=== PATIENT | male | born 1975 | race Caucasian/White ===

== ENCOUNTER 2023-03-26 08:59 | Observation (INO) | payer BC ==
--- NOTE | 2023-03-26 09:17 | ED ---
Chest Pain HPI - General Stated Complaint: Back pain Source: patient Mode of arrival: ambulatory Limitations: no limitations - History of Present Illness Initial Comments: The patient is a 47-year-old gentleman who was recently diagnosed with type 2 diabetes and hypercholesterol who presents with back and chest pain. Patient was told to come to the emergency room by poultry hatchery manager Dr. Hall. Patient has been having intermittent chest pain and back pain over the last 3 months. This started at the same time he was diagnosed with new onset diabetes and hyper lipidemia. The patient had an outpatient stress test neck which showed some changes. He is requiring a cardiac cath however has not been scheduled. The patient spoke with the poultry hatchery manager yesterday who instructed him to come to the emergency room this morning. Of note patient states he does have a family history of cardiac disease including his father who had a bypass and suspected aneurysm versus dissection repair In his mid 50s. The patient vapes. he dneies drug use. denies shortness of breath. the pain usually starts in the back and radiates through to the chest. He denies any pleuritic pain. The pain is worse with activity and ambulation. - Related Data Allergies Allergy/AdvReac Type Severity Reaction Status Date / Time tetanus immune globulin Allergy Unknown Verified 03/26/23 09:05 Childhood Review of Systems ROS Statement: Those systems with pertinent positive or pertinent negative responses have been documented in the HPI. ROS Other: All systems not noted in ROS Statement are negative. EKG Findings - EKG Comments: EKG Findings:: EKG shows sinus rhythm at a rate in 99 bpm, complete right bundle-branch block, no acute ST segment elevation Past Medical History Past Medical History: Diabetes Mellitus, Hypertension History of Any Multi-Drug Resistant Organisms: None Reported Past Surgical History: Back Surgery Additional Past Surgical History / Comment(s): Back surgery. Past Psychological History: No Psychological Hx Reported Smoking Status: Vaper Past Alcohol Use History: None Reported Past Drug Use History: None Reported General Exam Limitations: no limitations General appearance: alert, in no apparent distress Head exam: Present: atraumatic Eye exam: Present: normal appearance ENT exam: Present: normal exam Neck exam: Present: normal inspection Respiratory exam: Present: normal lung sounds bilaterally Cardiovascular Exam: Present: regular rate, tachycardia GI/Abdominal exam: Present: soft Extremities exam: Present: full ROM Back exam: Present: full ROM Neurological exam: Present: alert, oriented X3, CN II-XII intact Psychiatric exam: Present: normal affect, normal mood Skin exam: Present: warm, dry Course Vital Signs 03/26/23 03/26/23 03/26/23 09:00 09:11 09:16 Temperature 98.4 F Pulse Rate 116 H 97 Pulse Rate [ 116 H Pulse Oximetery ] Respiratory 18 18 Rate Blood Pressure 152/97 145/86 O2 Sat by Pulse 98 99 Oximetry - Reevaluation(s) Reevaluation #1: 03/26/23 11:42 Patient's well appearing emergency room. On reevaluation his heart rate had significantly improved. I discussed lab and imaging results with patient. CT angiogram was negative for dissection or aneurysm. His EKG shows no acute ST segment elevation in his troponin is negative. I discussed admission plan for the suspected cardiac cath with the patient. He understands reasons to this plan. Chest Pain MDM - MDM Was pt. sent in by a medical professional or institution (, PA, INSTRUMENTAL MUSICIAN, urgent care, hospital, or fdc...) When possible be specific @ -Sent in by poultry hatchery manager Dr. Hall Did you speak to anyone other than the patient for history (EMS, parent, family, police, friend...)? What history was obtained from this source @ -[No] Did you review nursing and triage notes (agree or disagree)? Why? @ -[I reviewed and agree with nursing and triage notes] Were old charts reviewed (outside hosp., previous admission, EMS record, old EKG, old radiological studies, urgent care reports/EKG's, fdc records)? Report findings @ -[No old charts were reviewed] Differential Diagnosis (chest pain, altered mental status, abdominal pain women, abdominal pain men, vaginal bleeding, weakness, fever, dyspnea, syncope, headache, dizziness, GI bleed, back pain, seizure, CVA, palpatations, mental health, musculoskeletal)? @ -Chest pain, angina, MT, aortic dissection, aortic aneurysm EKG interpreted by me (3pts min.). @ -Shows sinus rhythm at a rate of 99 bpm, incomplete right bundle-branch block, no acute ST segment elevation X-rays interpreted by me (1pt min.). @ -[None done] CT interpreted by me (1pt min.). @ -CT angiogram of the abdomen and chest was negative for any aortic dissection or aneurysm however radiology report is pending for confirmation of specific acute changes U/S interpreted by me (1pt. min.). @ -[None done] What testing was considered but not performed or refused? (CT, X-rays, U/S, labs)? Why? @ -[None] What meds were considered but not given or refused? Why? @ -[None] Did you discuss the management of the patient with other professionals (professionals i.e. , PA, INSTRUMENTAL MUSICIAN, lab, RT, psych nurse, social services manager, punch press operator helper, teacher, textile technical officer, lead case manager)? Give summary @ -Symptoms workup and disposition with attending ED physician Dr. Lezama today. The CT angios order as well. Was smoking cessation discussed for >3mins.? @ -[No] Was critical care preformed (if so, how long)? @ -[No] Were there social determinants of health that impacted care today? How? (Homel essness, low income, unemployed, alcoholism, drug addiction, transportation, low edu. Level, literacy, decrease access to med. care, residential, rehab)? @ -[No] Was there de-escalation of care discussed even if they declined (Discuss DNR or withdrawal of care, Hospice)? DNR status @ -[No] What co-morbidities impacted this encounter? (DM, HTN, Smoking, COPD, CAD, Cancer, CVA, ARF, Chemo, Hep., AIDS, mental health diagnosis, sleep apnea, morbid obesity)? @ -New diagnosis of DM and hyperlipidemia Was patient admitted / discharged? Hospital course, mention meds given and route, prescriptions, significant lab abnormalities, going to OR and other pertinent info. @ -Patient will be admitted to the hospital for cardiac evaluation and suspected cardiac cath Undiagnosed new problem with uncertain prognosis? @ -[No] Drug Therapy requiring intensive monitoring for toxicity (Heparin, Nitro, Insulin, Cardizem)? @ -[No] Were any procedures done? @ -[No] Diagnosis/symptom? @ -Chest pain Acute, or Chronic, or Acute on Chronic? @ -[default] Uncomplicated (without systemic symptoms) or Complicated (systemic symptoms)? @ -Uncomplicated Side effects of treatment? @ -[No] Exacerbation, Progression, or Severe Exacerbation? @ -[No] Poses a threat to life or bodily function? How? (Chest pain, USA, MT, pneumonia, PE, COPD, DKA, ARF, appy, cholecystitis, CVA, Diverticulitis, Homicidal, Suicidal, threat to staff... and all critical care pts) @ -Yes patient is at risk of having an MT, permanent disability or . Disposition Clinical Impression: Chest pain Disposition: ADMITTED IP TO THIS [facility] Condition: Good Is patient prescribed a controlled substance at d/c from ED?: No Referrals: Maye Lombardo DO [Primary Care Provider] - 1-2 days Decision Time: 11:45
[2023-03-26 09:33] LABS: Basophils % (A) 1 %; Eosinophils # (A) 0.2 k/uL (0-0.7); Eosinophils % (A) 2 %; HCT 47.2 % (39.0-53.0); HGB 16.4 gm/dL (13.0-17.5); Lymphocytes # (A) 2.2 k/uL (1.0-4.8); Lymphocytes % (A) 24 %; MCH 30.1 pg (25.0-35.0); MCHC 34.7 g/dL (31.0-37.0); MCV 86.6 fL (80.0-100.0); Mean Platelet Volume 7.9; Monocytes # (A) 0.4 k/uL (0-1.0); Monocytes % (A) 5 %; Neutrophils # (A) 6.1 k/uL (1.3-7.7); Neutrophils % (A) 66 %; Platelet Count 256 k/uL (150-450); RBC 5.45 m/uL (4.30-5.90); RDW 13.3 % (11.5-15.5); WBC 9.3 k/uL (3.8-10.6)
[2023-03-26 09:54] LABS: INR 0.9 (<1.2); Partial Thromboplastin Time 23.4 sec (22.0-30.0); Prothrombin Time 10.4 sec (10.0-12.5)
[2023-03-26 09:59] LABS: ALT 23 U/L (4-49); AST 20 U/L (17-59); African American GFR (CKD) >90 (>60 ml/min/1.73 sqM); Albumin 4.4 g/dL (3.5-5.0); Alkaline Phosphatase 67 U/L (38-126); Anion Gap 13 mmol/L; Blood Urea Nitrogen 16 mg/dL (9-20); Calcium 9.4 mg/dL (8.4-10.2); Carbon Dioxide 20 mmol/L (22-30); Chloride 101 mmol/L (98-107); Glucose 316 mg/dL (74-99); Non-African American GFR(CKD) >90 (>60 ml/min/1.73 sqM); Potassium 4.8 mmol/L (3.5-5.1); Sodium 134 mmol/L (137-145); Total Bilirubin 0.7 mg/dL (0.2-1.3); Total Protein 6.9 g/dL (6.3-8.2)
[2023-03-26] MEDS ORDERED: ASPIRIN 81 MG PO STA (10:26)
[2023-03-26] MEDS ORDERED: SODIUM CHLORIDE 0.9% 500 ML 500 ML IV STA (10:26)
[2023-03-26] MEDS ORDERED: INSULIN REGULAR 100 UNIT/ML VIAL (IV) IV ONE (10:26)
[2023-03-26] MEDS ORDERED: NITROGLYCERIN SL TABS 0.4 MG TAB SUBLINGUAL PRN ×2 (10:27→11:33)
--- NOTE | 2023-03-26 10:45 | CT ---
INDICATION: Patient age:Male; 47 years old; Reason for study: back pain radiating through chest, tachycardic; PHH. COMPARISON: None. TECHNIQUE: Multiple axial images of the chest abdomen were obtained prior to and following intravenou s administration of 100 cc Isovue-370. Coronal and sagittal reformatted images were obtained. Three-d imensional images are obtained at independent workstation for further evaluation of the arterial stru ctures. 3-D reconstructed images and maximum intensity projection images were obtained of the aorta.O ne or more CT dose reduction strategies were utilized during this examination. Total DLP administered 2711.8 mGycm FINDINGS: VASCULAR FINDINGS: ARTERIAL VASCULATURE: The unenhanced images do not demonstrate any evidence to suggest intramural hematoma. After the admin istration of contrast, the aorta demonstrate a normal course and caliber. The pulmonary outflow tract appears within normal limits for size. There is no evidence of aortic dissection, aneurysm or acute aortic injury. Great arch vessels patent and normal in course and caliber. The celiac axis, SMA, bi lateral single renal arteries, and MIRELA are widely patent. PULMONARY ARTERIAL VASCULATURE: Normal caliber. CHEST: LUNGS: No acute area of infiltrative or consolidative change. LARGE AIRWAYS: Central airways are patent. PLEURAL: No pleural effusion or thickening. No pneumothorax. HEART AND PERICARDIUM: Heart is normal in size. There is no pericardial effusion. Mild coronary arter y calcifications present. MEDIASTINUM AND SHIRA: No mediastinal or hilar lymphadenopathy or soft tissue mass. CHEST WALL AND LOWER NECK: Bilateral gynecomastia. ABDOMEN: Liver: Unremarkable. Gallbladder and Bile ducts: Unremarkable. Pancreas: Unremarkable. Spleen: Unremarkable. Adrenal glands: Unremarkable. Kidneys and Ureters: No hydronephrosis or renal calculus. The kidneys enhance symmetrically. Stomach and Bowel: Hyperdense material within the stomach on the noncontrast phase. No evidence of carter wel obstruction or bowel wall thickening. Peritoneum: No evidence of pneumoperitoneum, free fluid, or adenopathy. Musculoskeletal: The osseous structures appear intact. Remote posterior left-sided lower rib fracture s. IMPRESSION: No evidence of aortic dissection or acute process.
[2023-03-26] MEDS ORDERED: NALOXONE 0.4 MG/ML 1 ML VIAL IV PRN (11:33)
[2023-03-26] MEDS ORDERED: ALPRAZolam 0.25 MG TAB PO PRN (13:33)
[2023-03-26] MEDS ORDERED: ALPRAZolam 0.5 MG TAB PO PRN (13:33)
[2023-03-26] MEDS ORDERED: ATORVASTATIN 80 MG TAB PO STA (13:33)
[2023-03-26] MEDS ORDERED: SODIUM CHLORIDE 0.9% 1,000 ML in EMPTY BAG 1 BAG IV SCH (13:45)
[2023-03-26] MEDS ORDERED: VERAPAMIL 2.5 MG/ML 2 ML AMP ONE (14:12)
[2023-03-26] MEDS ORDERED: fentaNYL (PF) 50 MCG/ML 2 ML AMP ONE (14:12)
[2023-03-26] MEDS ORDERED: SODIUM CHLORIDE 0.9% 1,000 ML IV ONE (14:18)
--- NOTE | 2023-03-26 14:26 | P.CRDCN ---
History of Present Illness History of present illness: HISTORY OF PRESENTING ILLNESS Patient is a pleasant 47-year-old male with history of recently diagnosed hypertension, hyperlipidemia, diabetes mellitus type 2. Patient has been having increasing episodes of chest pain with exertion as well as shortness of breath. He did have a stress test which is abnormal and therefore recommended for heart catheterization however has been having issues with insurance denying an outpatient test. Therefore given unstable angina-type symptoms recommended to go to the emergency department. He was started on metoprolol however no significant change in his symptoms. Family history of CAD. He is vaping. Troponin noted to be normal. CTA was performed which showed no PE, no dissection. REVIEW OF SYSTEMS At the time of my exam: CONSTITUTIONAL: Denies fever or chills. CARDIOVASCULAR: +chest pain, +shortness of breath, no orthopnea, PND or palp itations. RESPIRATORY: Denies cough. GASTROINTESTINAL: Denies abdominal pain, diarrhea, constipation, nausea or vomiting. MUSCULOSKELETAL: Denies myalgias. NEUROLOGIC: Denies numbness, tingling or weakness. ENDOCRINE: Denies fatigue, weight change, polydipsia or polyurina. GENITOURINARY: Denies burning, hematuria or urgency with micturation. HEMATOLOGIC: Denies history of anemia or bleeding. PHYSICAL EXAMINATION Vital signs reviewed. CONSTITUTIONAL: No apparent distress. HEENT: Head is normocephalic. Pupils are equal, round. Sclerae anicteric. Mucous membranes of the mouth are moist. No JVD. No carotid bruit. CHEST EXAMINATION: Lungs are clear to auscultation. No chest wall tenderness is noted on palpation or with deep breathing. HEART EXAMINATION: Regular rate and rhythm. S1, S2 heard. No murmurs, gallops or rub. ABDOMEN: Soft, nontender. Positive bowel sounds. EXTREMITIES: 2+ peripheral pulses, no lower extremity edema and no calf tenderness. NEUROLOGIC EXAMINATION: Patient is awake, alert and oriented x3. ASSESSMENT 1. Chest pain with exertion over last few months consistent with unstable angina, worsening 2. Hypertension 3. Hyperlipidemia 4. Diabetes mellitus type 2 5. Family history of CAD PLAN Patient with abnormal stress test and persistent symptoms with no other etiology. Symptoms concerning for unstable angina. Check left heart catheterization. Further recommendations to follow. Past Medical History Past Medical History: Diabetes Mellitus, Hypertension History of Any Multi-Drug Resistant Organisms: None Reported Past Surgical History: Back Surgery Additional Past Surgical History / Comment(s): Back surgery. Past Psychological History: No Psychological Hx Reported Smoking Status: Vaper Past Alcohol Use History: None Reported Past Drug Use History: None Reported Medications and Allergies Home Medications Medication Instructions Recorded Confirmed Type Aspirin EC [Ecotrin Low Dose] 81 mg PO DAILY 03/26/23 03/26/23 History Metoprolol Succinate [Metoprolol 25 mg PO DAILY 03/26/23 03/26/23 History Succinate ER] Nitroglycerin Sl Tabs [Nitrostat] 0.4 mg SUBLINGUAL Q5M PRN 03/26/23 03/26/23 History Tirzepatide [Mounjaro] 2.5 mg SQ TH 03/26/23 03/26/23 History amLODIPine [Norvasc] 2.5 mg PO DAILY 03/26/23 03/26/23 History lisinopriL [Zestril] 10 mg PO DAILY 03/26/23 03/26/23 History Allergies Allergy/AdvReac Type Severity Reaction Status Date / Time tetanus immune globulin Allergy Unknown Verified 03/26/23 12:19 Childhood Physical Exam Vitals: Vital Signs Temp Pulse Pulse Resp BP Pulse Ox 03/26/23 09:16 97 18 145/86 99 03/26/23 09:11 116 H 03/26/23 09:00 98.4 F 116 H 18 152/97 98 Intake and Output 03/25/23 03/26/23 03/26/23 22:59 06:59 14:59 Other: Weight 138.346 kg Results 03/26/23 09:20 03/26/23 09:20 Cardiac Enzymes 03/26/23 03/26/23 Range/Units 09:20 09:20 AST 20 (17-59) U/L Troponin I <0.012 (0.000-0.034) ng/mL Coagulation 03/26/23 Range/Units 09:20 PT 10.4 (10.0-12.5) sec APTT 23.4 (22.0-30.0) sec CBC 03/26/23 Range/Units 09:20 WBC 9.3 (3.8-10.6) k/uL RBC 5.45 (4.30-5.90) m/uL Hgb 16.4 (13.0-17.5) gm/dL Hct 47.2 (39.0-53.0) % Plt Count 256 (150-450) k/uL Comprehensive Metabolic Panel 03/26/23 Range/Units 09:20 Sodium 134 L (137-145) mmol/L Potassium 4.8 (3.5-5.1) mmol/L Chloride 101 (98-107) mmol/L Carbon Dioxide 20 L (22-30) mmol/L BUN 16 (9-20) mg/dL Creatinine 0.78 (0.66-1.25) mg/dL Glucose 316 H (74-99) mg/dL Calcium 9.4 (8.4-10.2) mg/dL AST 20 (17-59) U/L ALT 23 (4-49) U/L Alkaline Phosphatase 67 (38-126) U/L Total Protein 6.9 (6.3-8.2) g/dL Albumin 4.4 (3.5-5.0) g/dL Current Medications Generic Name Dose Route Start Last Admin Trade Name Freq PRN Reason Stop Dose Admin Alprazolam 0.25 mg 03/26/23 13:33 Alprazolam 0.25 Mg Tab PO Q6HR PRN Mild Anxiety Alprazolam 0.5 mg 03/26/23 13:33 Alprazolam 0.5 Mg Tab PO Q6HR PRN Moderate Anxiety Aspirin 325 mg 03/27/23 09:00 Aspirin 325 Mg Tab PO DAILY KATY Heparin Sodium (Porcine) 10, 1,001 mls @ 999 mls/hr 03/27/23 07:00 000 unit/ Sodium Chloride IRRIGATION 03/27/23 23:00 ONCE PRN INTRA-OP Heparin Sodium (Porcine) 2,500 250.5 mls @ 250 mls/hr 03/27/23 07:00 unit/ Sodium Chloride IRRIGATION 03/27/23 23:00 ONCE PRN INTRA-OP Sodium Chloride 1,000 ml/ IV 1,000 mls @ 138.346 mls/hr 03/26/23 13:45 Solution IV .Q7H14M KATY 1 ML/KG/HR Naloxone HCl 0.2 mg 03/26/23 11:33 Naloxone 0.4 Mg/Ml 1 Ml Vial IV Q2M PRN Opioid Reversal Nitroglycerin 0.4 mg 03/26/23 10:27 Nitroglycerin Sl Tabs 0.4 Mg Tab SUBLINGUAL Q5M PRN Chest Pain Intake and Output 03/25/23 03/26/23 03/26/23 22:59 06:59 14:59 Other: Weight 138.346 kg Patient Weight 03/27/23 06:59 Weight 138.346 kg 03/26/23 09:20 03/26/23 09:20
[2023-03-26] MEDS ORDERED: MIDAZOLAM 2 MG/2 ML VIAL IVP ONE (14:28)
[2023-03-26] MEDS ORDERED: LIDOCAINE 1% INJ 10MG/ML (5 ML VIAL-PF) SQ ONE (14:29)
[2023-03-26] MEDS ORDERED: VERAPAMIL SYRINGE (5 MG/10 ML) INTRAARTER ONE (14:31)
[2023-03-26] MEDS ORDERED: HEPARIN SODIUM 1,000 UN/ML (10ML VL) IV ONE (14:32)
[2023-03-26] MEDS ORDERED: fentaNYL (PF) 50 MCG/ML 2 ML AMP IVP ONE (14:33)
[2023-03-26] MEDS ORDERED: IOPAMIDOL-370 100ML BTL INJ ONE (14:41)
--- NOTE | 2023-03-26 14:45 | P.CARDCATH ---
Description of Procedure: PROCEDURES PERFORMED: Left heart catheterization, bilateral coronary angiography, ultrasound guided arterial access INDICATION: Chest pain concerning for unstable angina CONSENT:I have discussed the risks, benefits and alternative therapies for the above-mentioned procedure and for both sedation/analgesia as well as necessary blood product administration, if indicated, as they pertain to this patient. The patient has indicated understanding and acceptance of the risks and procedures discussed. PROCEDURE: After the risks, benefits and alternatives of the above mentioned procedure explained in detail with the patient, informed consent was obtained. Patient was taken to the catheterization lab and prepped and draped in usual fashion. Ultrasound guidance was used to assess for arterial access. 1% lidocaine was used to anesthetize the right radial artery. A 6-Czech sheath was placed in the right radial artery using modified Seldinger technique and ultrasound guidance. Left coronary angiography was performed with a 5-Czech JL 3.5 catheter and right coronary angiography was performed with a 5-Czech JR5 catheter in various views. A 5-Czech FR5 catheter was inserted into the left ventricle and pressure measurements were obtained. The right radial sheath was removed and a TR band was placed with hemostasis achieved. The patient tolerated the procedure well. Patient was transported back to the post catheterization holding area in stable condition. Conscious Sedation: Patient was monitored under the direct supervision of myself for conscious sedation using Versed and fentanyl for a total duration of 12 minutes HEMODYNAMICS: Aorta: 123/74 LV: 132/7, LVEDP 13-14 SELECTIVE CORONARY ARTERIOGRAPHY: LEFT MAIN: The left main is a large caliber vessel which bifurcates into the LAD and circumflex. There is no significant stenosis. LEFT ANTERIOR DESCENDING CORONARY ARTERY: LAD is a large caliber vessel which wraps around to the apex. There are mild luminal irregularities. The LAD becomes somewhat small caliber after a small to moderate caliber diagonal 2 branch and there is a more focal 40-50% stenosis. LEFT CIRCUMFLEX CORONARY ARTERY: Left circumflex is a moderate caliber vessel without significant stenosis. RIGHT CORONARY ARTERY: The right coronary artery is a large caliber vessel which gives off a PDA and PLV branch and is the dominant vessel. There are mild luminal irregularities up to 10%. FINAL IMPRESSION: 1. Relatively normal coronary arteries other than a distal LAD 40-50% stenosis just after diagonal 2 branch, appears more moderate 2. Normal left sided filling pressures PLAN: 1. Aggressive risk factor modification per most recent ACC/AHA guidelines. 2. Follow-up in the office in 1-2 weeks. 3. If continuing to have angina-type symptoms may consider iFR of the distal LAD however appears moderate 40% stenosis.
[2023-03-26 16:06] VITALS: TEMP 97.9
[2023-03-26 16:31] LABS: Glucose,Whole Blood 215 mg/dL (70-110)
[2023-03-26 16:49] LABS: Basophils % (A) 0 %; Eosinophils # (A) 0.1 k/uL (0-0.7); Eosinophils % (A) 1 %; Lymphocytes # (A) 1.3 k/uL (1.0-4.8); Lymphocytes % (A) 15 %; MCH 30.6 pg (25.0-35.0); MCHC 34.9 g/dL (31.0-37.0); MCV 87.7 fL (80.0-100.0); Mean Platelet Volume 7.9; Monocytes # (A) 0.4 k/uL (0-1.0); Monocytes % (A) 5 %; Neutrophils # (A) 6.4 k/uL (1.3-7.7); Neutrophils % (A) 77 %; Platelet Count 252 k/uL (150-450); RBC 5.24 m/uL (4.30-5.90); RDW 13.5 % (11.5-15.5); WBC 8.3 k/uL (3.8-10.6)
[2023-03-26 17:22] VITALS: BP 115/67; PULSE 78; RESP 18
[2023-03-26 17:29] LABS: Potassium 4.5 mmol/L (3.5-5.1)
[2023-03-26 17:31] LABS: African American GFR (CKD) >90 (>60 ml/min/1.73 sqM); Anion Gap 12 mmol/L; Blood Urea Nitrogen 14 mg/dL (9-20); Calcium 9.4 mg/dL (8.4-10.2); Carbon Dioxide 24 mmol/L (22-30); Chloride 102 mmol/L (98-107); Glucose 180 mg/dL (74-99); Non-African American GFR(CKD) >90 (>60 ml/min/1.73 sqM); Sodium 138 mmol/L (137-145)
[2023-03-27] MEDS ORDERED: HEPARIN SODIUM,PORCINE (1 ML) 2,500 UNIT in SODIUM CHLORIDE 0.9% 250 ML IRRIGATION PRN (07:00)
[2023-03-27] MEDS ORDERED: HEPARIN SODIUM,PORCINE 10,000 UNIT in SODIUM CHLORIDE 0.9% 1,000 ML IRRIGATION PRN (07:00)
[2023-03-27] MEDS ORDERED: ASPIRIN 325 MG TAB PO SCH (09:00)
== END 2023-03-26 17:55 | disposition left against medical advice (07) ==
LOC: EC 08:59 → 6NMEDSUR 13:15 → 3SCARD 15:04
PROVIDERS: ADMIT Family Medicine; ATTEND Family Medicine
DX: R07.89 Other chest pain (principal); I25.10 Atherosclerotic heart disease of native coronary artery without angina pectoris; E11.9 Type 2 diabetes mellitus without complications; E78.5 Hyperlipidemia, unspecified; I10 Essential (primary) hypertension; F17.290 Nicotine dependence, other tobacco product, uncomplicated; Z79.82 Long term (current) use of aspirin; Z79.899 Other long term (current) drug therapy; Z82.49 Family history of ischemic heart disease and other diseases of the circulatory system
CPT/HCPCS: 99285; 36415; 93005; 93458; 76937; 80053; 80048; 84484; 85025; 85610; 85730; 71275; 74175; G0378 ×2; C1769; C1894; J2250; J2001; J3010; J1644; Q9967

== ENCOUNTER 2023-11-19 19:05 | Emergency (ER) | payer BC ==
--- NOTE | 2023-11-19 19:58 | ED ---
General Adult HPI - General Chief complaint: Neck Pain/Injury Stated complaint: R Shoulder Pain/Neck Pain Time Seen by Provider: 11/19/23 19:57 Source: patient, RN notes reviewed Mode of arrival: ambulatory Limitations: no limitations - History of Present Illness Initial comments: 48-year-old male presented to the ER with a chief complaint of right-sided neck and arm pain. Patient has a past medical history significant of hypertension and type 2 diabetes. He admits to being noncompliant with his medications for about 2-1/2 weeks. Patient reports he woke up this morning feeling like "garbage". He states around noon today started to experience a sharp right- sided neck pain with radiation down his right arm and right chest. Patient denies any known traumas or injuries. He does report an increase in shortness of breath and dizziness since the onset of pain. He denies any nausea, vomiting or diaphoresis. He denies any fevers, chills, abdominal pain, urinary symptoms, constipation/diarrhea or peripheral edema. - Related Data Home Medications Medication Instructions Recorded Confirmed Aspirin EC [Ecotrin Low Dose] 81 mg PO DAILY 03/26/23 03/26/23 Metoprolol Succinate [Metoprolol 25 mg PO DAILY 03/26/23 03/26/23 Succinate ER] Nitroglycerin Sl Tabs [Nitrostat] 0.4 mg SUBLINGUAL Q5M PRN 03/26/23 03/26/23 Tirzepatide [Mounjaro] 2.5 mg SQ TH 03/26/23 03/26/23 amLODIPine [Norvasc] 2.5 mg PO DAILY 03/26/23 03/26/23 lisinopriL [Zestril] 10 mg PO DAILY 03/26/23 03/26/23 Allergies Allergy/AdvReac Type Severity Reaction Status Date / Time tetanus immune globulin Allergy Unknown Verified 11/19/23 19:19 Childhood Review of Systems ROS Statement: Those systems with pertinent positive or pertinent negative responses have been documented in the HPI. ROS Other: All systems not noted in ROS Statement are negative. Past Medical History Past Medical History: Diabetes Mellitus, Hypertension History of Any Multi-Drug Resistant Organisms: None Reported Past Surgical History: Back Surgery Additional Past Surgical History / Comment(s): Back surgery. Past Psychological History: No Psychological Hx Reported Smoking Status: Vaper Past Alcohol Use History: None Reported Past Drug Use History: None Reported General Exam Limitations: no limitations General appearance: alert, in no apparent distress Neck exam: Present: normal inspection, tenderness (Right trapezius muscle) Respiratory exam: Present: normal lung sounds bilaterally. Absent: respiratory distress, wheezes, rales, rhonchi, stridor Cardiovascular Exam: Present: regular rate, normal rhythm, normal heart sounds. Absent: systolic murmur, diastolic murmur, rubs, gallop, clicks Extremities exam: Present: normal inspection, full ROM, tenderness (Right AC joint. 2+ right radial pulse. Sensation intact. Active range of motion limited by pain), normal capillary refill. Absent: pedal edema, joint swelling, calf tenderness Back exam: Present: normal inspection Neurological exam: Present: alert, oriented X3, CN II-XII intact Skin exam: Present: warm, dry, intact, normal color. Absent: rash Course Vital Signs 11/19/23 11/19/23 11/19/23 19:18 20:32 22:57 Temperature 99.3 F 98.1 F Pulse Rate 99 97 86 Respiratory 18 17 16 Rate Blood Pressure 191/115 145/92 151/99 O2 Sat by Pulse 96 96 96 Oximetry Medical Decision Making - Medical Decision Making Was pt. sent in by a medical professional or institution (, PA, STOCK TRACER, urgent care, hospital, or shelter...) When possible be specific @ -No Did you speak to anyone other than the patient for history (EMS, parent, family, police, friend...)? What history was obtained from this source @ -No Did you review nursing and triage notes (agree or disagree)? Why? @ -I reviewed and agree with nursing and triage notes Were old charts reviewed (outside hosp., previous admission, EMS record, old EKG, old radiological studies, urgent care reports/EKG's, shelter records)? Report findings @ -Yes, I reviewed EKG from 03-26-2023. EKG showed normal sinus rhythm with no acute ST segment or T wave abnormalities. Differential Diagnosis (chest pain, altered mental status, abdominal pain women, abdominal pain men, vaginal bleeding, weakness, fever, dyspnea, syncope, headache, dizziness, GI bleed, back pain, seizure, CVA, palpatations, mental health, musculoskeletal)? @ -Differential Chest Pain: Stable Angina, Unstable Angina, STEMI, NSTEMI Aortic Dissection, Pneumothorax, Musculoskeletal, Esophageal Spasm GERD, Cholecystitis, Pancreatitis, Zoster, this is not meant to be an all-inclusive list. EKG interpreted by me (3pts min.). @ -As above X-rays interpreted by me (1pt min.). @ -Chest x-ray interpreted by me negative for acute cardiopulmonary process. Right shoulder x-ray interpreted by me negative for acute fractures or dislocations. CT interpreted by me (1pt min.). @ -None done U/S interpreted by me (1pt. min.). @ -None done What testing was considered but not performed or refused? (CT, X-rays, U/S, labs)? Why? @ -Second troponin strongly recommended but patient refused and stated he wants to be discharged and go home. What meds were considered but not given or refused? Why? @ -None Did you discuss the management of the patient with other professionals (professionals i.e. , PA, STOCK TRACER, lab, RT, psych nurse, social work lecturer, sharemilker, teacher, fire officer, correctional counselor/case manager)? Give summary @ -No Was smoking cessation discussed for >3mins.? @ -No Was critical care preformed (if so, how long)? @ -No Were there social determinants of health that impacted care today? How? (Homelessness, low income, unemployed, alcoholism, drug addiction, transportatio n, low edu. Level, literacy, decrease access to med. care, prison, rehab)? @ -No Was there de-escalation of care discussed even if they declined (Discuss DNR or withdrawal of care, Hospice)? DNR status @ -Hypertension, hyperlipidemia, history of RI, type 2 diabetes, obese What co-morbidities impacted this encounter? (DM, HTN, Smoking, COPD, CAD, Cancer, CVA, ARF, Chemo, Hep., AIDS, mental health diagnosis, sleep apnea, morbid obesity)? @ -Type 2 diabetes, hypertension, hyperlipidemia, obese Was patient admitted / discharged? Hospital course, mention meds given and route, prescriptions, significant lab abnormalities, going to OR and other pertinent info. @ -Discharge. 48-year-old male presenting to the ER with a chief complaint of right-sided neck and shoulder pain. History and physical exam completed. Vitals stable. Patient admits to be noncompliant with medications for about 2 1/2 weeks. Patient in no signs of acute distress and nontoxic-appearing. Focal tenderness to right trapezius muscle and AC joint with abduction of right shoulder. Palpation of right chest also reproduces pain. Normal heart and lung sounds. Cardiac workup obtained as patient has been noncompliant with medications and patient's concerning symptoms. Lab studies obtained remarkable leukocytosis with a left shift white blood cell count 11.3, which may be related to patient's nicotine use. Glucose 263 which is likely related to patient being noncompliant with diabetic medication. Troponin less than 0.012. EKG showing sinus rhythm with no acute ST segment or T wave abnormalities. Chest x- ray and right shoulder x-ray negative for acute process. Patient received 1 L IV fluids and Toradol for pain control in the ER. Upon reevaluation, patient resting comfortably in exam room in no signs of acute distress. Patient expressing he would like to be discharged at this time. Neck, right shoulder and right-sided chest pain believed to be musculoskeletal in nature as it is reproducible and exacerbated with movements. Due to patient's extensive cardiac history and comorbidities, I recommended observation for cardiology consultation and serial troponins. Patient refused admission and second troponin. Patient displayed medical decision making capabilities and verbally expressed understanding of the risks of discharge given his comorbidities. Patient states he will follow-up with his primary care physician. I strongly recommended patient restart prescribed medications. Extremely strict return parameters discussed at length with patient. Patient discharged in stable condition with follow-up to PCP. Patient verbally expressed understanding and agreement with care plan. Case discussed with ED attending, Dr. Juarez. Undiagnosed new problem with uncertain prognosis? @ -No Drug Therapy requiring intensive monitoring for toxicity (Heparin, Nitro, Insuli n, Cardizem)? @ -No Were any procedures done? @ -No Diagnosis/symptom? @ -Musculoskeletal pain/hyperglycemia Acute, or Chronic, or Acute on Chronic? @ -Acute Uncomplicated (without systemic symptoms) or Complicated (systemic symptoms)? @ -Complicated Side effects of treatment? @ -No Exacerbation, Progression, or Severe Exacerbation? @ -No Poses a threat to life or bodily function? How? (Chest pain, USA, RI, pneumonia, PE, COPD, DKA, ARF, appy, cholecystitis, CVA, Diverticulitis, Homicidal, Suicidal, threat to staff... and all critical care pts) @ -No - Lab Data Result diagrams: 11/19/23 20:03 11/19/23 20:03 Lab Results 11/19/23 11/19/23 11/19/23 Range/Units 20:03 20:03 20:03 WBC 11.3 H (3.8-10.6) k/uL RBC 5.45 (4.30-5.90) m/uL Hgb 16.9 (13.0-17.5) gm/dL Hct 48.7 (39.0-53.0) % MCV 89.4 (80.0-100.0) fL MCH 30.9 (25.0-35.0) pg MCHC 34.6 (31.0-37.0) g/dL RDW 13.2 (11.5-15.5) % Plt Count 277 (150-450) k/uL MPV 7.6 Neutrophils % 71 % Lymphocytes % 20 % Monocytes % 6 % Eosinophils % 2 % Basophils % 1 % Neutrophils # 8.0 H (1.3-7.7) k/uL Lymphocytes # 2.2 (1.0-4.8) k/uL Monocytes # 0.7 (0-1.0) k/uL Eosinophils # 0.2 (0-0.7) k/uL Basophils # 0.1 (0-0.2) k/uL PT 9.9 L (10.0-12.5) sec INR 0.9 (<1.2) APTT 24.4 (22.0-30.0) sec Sodium 136 L (137-145) mmol/L Potassium 4.1 (3.5-5.1) mmol/L Chloride 104 (98-107) mmol/L Carbon Dioxide 23 (22-30) mmol/L Anion Gap 9 mmol/L BUN 13 (9-20) mg/dL Creatinine 0.71 (0.66-1.25) mg/dL Est GFR (CKD-EPI)AfAm >90 (>60 ml/min/1.73 sqM) Est GFR (CKD-EPI)NonAf >90 (>60 ml/min/1.73 sqM) Glucose 263 H (74-99) mg/dL Calcium 9.6 (8.4-10.2) mg/dL Magnesium 1.8 (1.6-2.3) mg/dL Total Bilirubin 0.7 (0.2-1.3) mg/dL AST 17 (17-59) U/L ALT 21 (4-49) U/L Alkaline Phosphatase 77 (38-126) U/L Troponin I (0.000-0.034) ng/mL Total Protein 7.5 (6.3-8.2) g/dL Albumin 4.7 (3.5-5.0) g/dL 11/19/23 Range/Units 20:03 WBC (3.8-10.6) k/uL RBC (4.30-5.90) m/uL Hgb (13.0-17.5) gm/dL Hct (39.0-53.0) % MCV (80.0-100.0) fL MCH (25.0-35.0) pg MCHC (31.0-37.0) g/dL RDW (11.5-15.5) % Plt Count (150-450) k/uL MPV Neutrophils % % Lymphocytes % % Monocytes % % Eosinophils % % Basophils % % Neutrophils # (1.3-7.7) k/uL Lymphocytes # (1.0-4.8) k/uL Monocytes # (0-1.0) k/uL Eosinophils # (0-0.7) k/uL Basophils # (0-0.2) k/uL PT (10.0-12.5) sec INR (<1.2) APTT (22.0-30.0) sec Sodium (137-145) mmol/L Potassium (3.5-5.1) mmol/L Chloride (98-107) mmol/L Carbon Dioxide (22-30) mmol/L Anion Gap mmol/L BUN (9-20) mg/dL Creatinine (0.66-1.25) mg/dL Est GFR (CKD-EPI)AfAm (>60 ml/min/1.73 sqM) Est GFR (CKD-EPI)NonAf (>60 ml/min/1.73 sqM) Glucose (74-99) mg/dL Calcium (8.4-10.2) mg/dL Magnesium (1.6-2.3) mg/dL Total Bilirubin (0.2-1.3) mg/dL AST (17-59) U/L ALT (4-49) U/L Alkaline Phosphatase (38-126) U/L Troponin I <0.012 (0.000-0.034) ng/mL Total Protein (6.3-8.2) g/dL Albumin (3.5-5.0) g/dL - EKG Data -: EKG Interpreted by Me EKG Comments: EKG taken at 20: 27 showing a sinus rhythm with no acute ST segment or T wave abnormalities. Left axis deviation. Ventricular rate 90, [place] interval 185, QRS duration 94, QT/QTc 361/408. - Radiology Data Radiology results: report reviewed, image reviewed Disposition Clinical Impression: Musculoskeletal pain, Type 2 diabetes mellitus Disposition: HOME SELF-CARE Condition: Stable Instructions (If sedation given, give patient instructions): Hypertension (ED), Type 2 Diabetes in the Older Adult (ED) Additional Instructions: You may take [id number] ibuprofen and Tylenol for pain. I strongly recommend and encourage you to restart your prescription medications for hypertension and diabetes. Follow-up with primary care physician in the next 1 to 2 days. Return to the ER for any new or worsening concerns. Is patient prescribed a controlled substance at d/c from ED?: No Referrals: Maye Lombardo DO [Primary Care Provider] - 1-2 days Time of Disposition: 22:38
[2023-11-19] MEDS: SODIUM CHLORIDE 0.9% 1,000 ML IV STA (20:24)
[2023-11-19] MEDS: KETOROLAC 15 MG/ML 1 ML VIAL IVP STA (20:25)
[2023-11-19 20:30] LABS: Basophils # (A) 0.1 k/uL (0-0.2); Basophils % (A) 1 %; Eosinophils # (A) 0.2 k/uL (0-0.7); Eosinophils % (A) 2 %; HCT 48.7 % (39.0-53.0); HGB 16.9 gm/dL (13.0-17.5); Lymphocytes # (A) 2.2 k/uL (1.0-4.8); Lymphocytes % (A) 20 %; MCH 30.9 pg (25.0-35.0); MCHC 34.6 g/dL (31.0-37.0); MCV 89.4 fL (80.0-100.0); Mean Platelet Volume 7.6; Monocytes # (A) 0.7 k/uL (0-1.0); Monocytes % (A) 6 %; Neutrophils % (A) 71 %; Platelet Count 277 k/uL (150-450); RBC 5.45 m/uL (4.30-5.90); RDW 13.2 % (11.5-15.5); WBC 11.3 k/uL (3.8-10.6)
[2023-11-19 20:36] LABS: INR 0.9 (<1.2); Partial Thromboplastin Time 24.4 sec (22.0-30.0); Prothrombin Time 9.9 sec (10.0-12.5)
--- NOTE | 2023-11-19 20:45 | XR ---
EXAMINATION TYPE: XR chest 2V DATE OF EXAM: 11/19/2023 8:38 PM CLINICAL INDICATION:Male, 48 years old with history of Chest Pain; [facility] COMPARISON: None TECHNIQUE: XR chest 2V Frontal and lateral views of the chest. FINDINGS: Lungs/Pleura: There is no evidence of pleural effusion, focal consolidation, or pneumothorax. Pulmonary vascularity: Unremarkable. Heart/mediastinum: Cardiomediastinal silhouette is unremarkable. Musculoskeletal: No acute osseous pathology. IMPRESSION: No acute cardiopulmonary disease/process.
[2023-11-19 21:14] LABS: ALT 21 U/L (4-49); AST 17 U/L (17-59); African American GFR (CKD) >90 (>60 ml/min/1.73 sqM); Albumin 4.7 g/dL (3.5-5.0); Alkaline Phosphatase 77 U/L (38-126); Anion Gap 9 mmol/L; Blood Urea Nitrogen 13 mg/dL (9-20); Calcium 9.6 mg/dL (8.4-10.2); Carbon Dioxide 23 mmol/L (22-30); Chloride 104 mmol/L (98-107); Glucose 263 mg/dL (74-99); Magnesium 1.8 mg/dL (1.6-2.3); Non-African American GFR(CKD) >90 (>60 ml/min/1.73 sqM); Potassium 4.1 mmol/L (3.5-5.1); Sodium 136 mmol/L (137-145); Total Bilirubin 0.7 mg/dL (0.2-1.3); Total Protein 7.5 g/dL (6.3-8.2)
--- NOTE | 2023-11-19 21:52 | XR ---
EXAMINATION TYPE: XR shoulder complete RT DATE OF EXAM: 11/19/2023 9:46 PM CLINICAL INDICATION:Male, 48 years old with history of pain; [facility] COMPARISON: Chest radiograph same TECHNIQUE: The right shoulder was examined in AP, internally rotated and scapular Y projections. FINDINGS: No evidence of acute osseous pathology, joint dislocation, or soft tissue swelling. Mild acromioclavi cular joint arthropathy. The remaining portions of the visualized chest are unremarkable. IMPRESSION: 1. No acute osseous pathology. 2. Mild acromioclavicular joint arthropathy.
[2023-11-19 23:03] VITALS: BP 151/99; PULSE 86; RESP 16; TEMP 98.1
== END 2023-11-19 23:05 | disposition home or self-care (01) ==
LOC: EC 19:05
DX: M25.511 Pain in right shoulder (principal); M54.2 Cervicalgia; E11.9 Type 2 diabetes mellitus without complications; I10 Essential (primary) hypertension; E78.5 Hyperlipidemia, unspecified; E66.9 Obesity, unspecified; F17.210 Nicotine dependence, cigarettes, uncomplicated; Z68.45 Body mass index [BMI] 70 or greater, adult; Z79.899 Other long term (current) drug therapy; Z88.7 Allergy status to serum and vaccine
CPT/HCPCS: 36415; 93005; 80053; 83735; 84484; 85025; 85610; 85730; 73030; 71046; 99284; 96374; 96361; J1885